=== PATIENT | female | born 1990 | race Caucasian/White ===

== ENCOUNTER 2020-01-14 02:35 | Inpatient (IN) | payer BC ==
[2020-01-14] MEDS ORDERED: Sodium Chloride 0.9% 10 ML Syringe FLUSH PRN (03:14)
[2020-01-14] MEDS ORDERED: Nalbuphine 10 MG/1 ML Vial IVPUSH PRN (03:14)
[2020-01-14] MEDS ORDERED: Oxytocin/Lactated Ringers 10 UNIT/1,000 ML BAG IV SCH (03:15)
[2020-01-14] MEDS: Lactated Ringers 1,000 ML IV SCH ×3 (03:42→06:00)
[2020-01-14] MEDS ORDERED: fentaNYL 100 MCG/2 ML SDV EPIDUR PRN (04:16)
[2020-01-14] MEDS ORDERED: diphenhydrAMINE 50 MG/ML SDV IVPUSH PRN (04:16)
[2020-01-14] MEDS ORDERED: Bupivacaine/fentaNYL/NS 100 ML Bag EPIDUR PRN (04:16)
[2020-01-14] MEDS ORDERED: ePHEDrine 50 MG/ML SDV IVPUSH PRN (04:16)
[2020-01-14] MEDS ORDERED: Acetaminophen 325 MG Tab PO PRN ×2 (05:55→09:30)
--- NOTE | 2020-01-14 09:15 | PCM.LDHP ---
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 Cervix 6 cm dilated on patient's presentation to labor and delivery 07/04/2019 blood type B+ antibody screen negative hemoglobin/hematocrit 13.2 39.9 platelets 290,000 rubella immune urine culture mixed amanda, hepatitis B surface antigen negative HIV negative GC chlamydia negative 10/24/2019 hemoglobin/hematocrit 11.8 36.2 platelets 272,001-hour OB glucose screen 144 3-hour glucose tolerance test fasting 79 1 hour 158 2-hour 152 3-hour 122 within normal limits, ER nonreactive /07/2019 group B strep negative. Plan labor and delivery Pain Score: 8 Improves with: Reports: None Worsens with: Reports: None Associated Symptoms: Reports: N - Related Data Allergies/Adverse Reactions: Allergies Allergy/AdvReac Type Severity Reaction Status Date / Time No Known Allergies Allergy Verified 01/14/20 02:45 Home Medications: Home Meds Ferrous Sulfate [Iron] 1 tab PO DAILY 01/14/20 [History] Pnv No.95/Ferrous Fum/Folic AC [ Vitamins Tablet] 1 tab PO DAILY 01/14/20 [History] Past Medical History HEENT History: Reports: Other (See Below) Other HEENT History: Pt wears contacts Cardiovascular History: Reports: None Respiratory History: Reports: None Gastrointestinal History: Reports: None Genitourinary History: Reports: None SIGNAL FITTER History: Reports: None Musculoskeletal History: Reports: None Neurological History: Reports: None Psychiatric History: Reports: None Endocrine/Metabolic History: Reports: None Hematologic History: Reports: Anemia, Other (See Below) Other Hematologic History: Pt taking daily iron supplement Immunologic History: Reports: None Oncologic (Cancer) History: Reports: None Dermatologic History: Reports: None - Infectious Disease History Infectious Disease History: Reports: None - Past Surgical History Head Surgeries/Procedures: Reports: None HEENT Surgical History: Reports: Tonsillectomy Social & Family History - Family History Family Medical History: No Pertinent Family History - Tobacco Use Tobacco Use Status *Q: Never Tobacco User - Recreational Drug Use Recreational Drug Use: No H&P Review of Systems - Review of Systems: Review Of Systems: See Below General: Reports: No Symptoms HEENT: Reports: No Symptoms Pulmonary: Reports: No Symptoms Cardiovascular: Reports: No Symptoms Gastrointestinal: Reports: No Symptoms Genitourinary: Reports: No Symptoms Musculoskeletal: Reports: No Symptoms Skin: Reports: No Symptoms Psychiatric: Reports: No Symptoms Neurological: Reports: No Symptoms Hematologic/Lymphatic: Reports: No Symptoms Immunologic: Reports: No Symptoms L&D Exam - Exam Exam: See Below - Vital Signs Vital Signs: Last Vital Signs Temp 100.0 F 01/14/20 05:52 Pulse Resp 16 01/14/20 03:00 BP 153/97 H 01/14/20 03:00 Pulse Ox 100 01/14/20 03:00 Weight: 201 lb 11.2 oz - OB Specific Fundal Height In cm: 39 Contraction Duration (sec): 60 Contraction Frequency (min): 4 Contraction Intensity: Moderate Movement: Active Heart Tones: Present Heart Tones per Min: 140 Heart Rate (FHR) Variability: Moderate (6-25 bmp) Presentation: Vertex Estimated Weight: 8.0 - Sprague Score Sprague Score Cervix Position: Posterior Sprague Score Consistency: Soft Sprague Score Effacement: >80% Sprague Score Dilation: > 5 cm Sprague Score 's Station: -1 ,0 Sprague Score Total: 10 - Exam General: Alert, Oriented HEENT: Conjunctiva Clear, Mucosa Moist & [place], Pupils Equal Neck: Supple, Trachea Midline Lungs: Clear to Auscultation, Normal Respiratory Effort Cardiovascular: Regular Rate, Regular Rhythm GI/Abdominal Exam: Normal Bowel Sounds, Soft, Non-Tender Genitourinary: Normal external exam Extremities: Normal Inspection, Non-Tender, No Pedal Edema, Normal Capillary Refill Skin: Warm, Dry, Intact Psychiatric: Alert, Normal Affect, Normal Mood - Patient Data Lab Results Last 24 hrs: Laboratory Results - last 24 hr 01/14/20 01/14/20 01/14/20 Range/Units 03:00 03:35 03:35 WBC 10.55 H (3.98-10.04) K/mm3 RBC 4.37 (3.98-5.22) M/mm3 Hgb 12.9 (11.2-15.7) gm/dl Hct 39.7 (34.1-44.9) % MCV 90.8 (79.4-94.8) fl MCH 29.5 (25.6-32.2) pg MCHC 32.5 (32.2-35.5) g/dl RDW Std Deviation 44.7 (36.4-46.3) fL Plt Count 210 (182-369) K/mm3 MPV 10.6 (9.4-12.3) fl Neut % (Auto) 75.5 H (34.0-71.1) % Lymph % (Auto) 15.3 L (19.3-51.7) % [place] % (Auto) 8.2 (4.7-12.5) % Eos % (Auto) 0.5 L (0.7-5.8) Baso % (Auto) 0.1 (0.1-1.2) % Neut # (Auto) 7.97 H (1.56-6.13) K/mm3 Lymph # (Auto) 1.61 (1.18-3.74) K/mm3 [place] # (Auto) 0.87 H (0.24-0.36) K/mm3 Eos # (Auto) 0.05 (0.04-0.36) K/mm3 Baso # (Auto) 0.01 (0.01-0.08) K/mm3 BUN 12 (7-18) mg/dL Creatinine 0.7 (0.55-1.02) mg/dL Est Cr Clr Drug Dosing 132.54 mL/min Estimated GFR (MDRD) > 60 (>60) mL/min Uric Acid 5.6 (2.6-6.0) mg/dL AST 11 L (15-37) U/L ALT 14 (14-59) U/L Lactate Dehydrogenase 151 (81-234) U/L Ur Random Creatinine (30.0-125.0) mg/dL U Random Total Protein (0.0-11.8) mg/dL Protein/Creatinin Ratio (0-149) mg/g Membrane Rupture Positive H SARS-CoV-2 RNA (SCHUYLER) (NEGATIVE) 01/14/20 01/14/20 Range/Units 03:35 03:40 WBC (3.98-10.04) K/mm3 RBC (3.98-5.22) M/mm3 Hgb (11.2-15.7) gm/dl Hct (34.1-44.9) % MCV (79.4-94.8) fl MCH (25.6-32.2) pg MCHC (32.2-35.5) g/dl RDW Std Deviation (36.4-46.3) fL Plt Count (182-369) K/mm3 MPV (9.4-12.3) fl Neut % (Auto) (34.0-71.1) % Lymph % (Auto) (19.3-51.7) % [place] % (Auto) (4.7-12.5) % Eos % (Auto) (0.7-5.8) Baso % (Auto) (0.1-1.2) % Neut # (Auto) (1.56-6.13) K/mm3 Lymph # (Auto) (1.18-3.74) K/mm3 [place] # (Auto) (0.24-0.36) K/mm3 Eos # (Auto) (0.04-0.36) K/mm3 Baso # (Auto) (0.01-0.08) K/mm3 BUN (7-18) mg/dL Creatinine (0.55-1.02) mg/dL Est Cr Clr Drug Dosing mL/min Estimated GFR (MDRD) (>60) mL/min Uric Acid (2.6-6.0) mg/dL AST (15-37) U/L ALT (14-59) U/L Lactate Dehydrogenase (81-234) U/L Ur Random Creatinine 115.9 (30.0-125.0) mg/dL U Random Total Protein 25.4 H (0.0-11.8) mg/dL Protein/Creatinin Ratio 219.2 H (0-149) mg/g Membrane Rupture SARS-CoV-2 RNA (SCHUYLER) Negative (NEGATIVE) Result Diagrams: 01/14/20 03:35 01/14/20 03:35 - Problem List (1) 39 weeks gestation of SNOMED Code(s): 33611410 ICD Code: Z3A.39 - 39 WEEKS GESTATION OF Status: Acute Current Visit: Yes Problem List Initiated/Reviewed/Updated: No Orders Last 24hrs: Active Orders 24 hr Category Date Time Status Patient Status [ADT] Routine ADT 01/14/20 02:45 Active Patient Status [ADT] Routine ADT 01/14/20 03:14 Active Activity as Tolerated [RC] PFP Care 01/14/20 03:14 Active Communication Order [RC] ASDIRECTED Care 01/14/20 03:14 Active Heart Tones [RC] ASDIRECTED Care 01/14/20 03:14 Active Non Stress Test [RC] PER UNIT ROUTINE Care 01/14/20 02:45 Active Non Stress Test [RC] PER UNIT ROUTINE Care 01/14/20 03:14 Active Notify Provider [RC] ASDIRECTED Care 01/14/20 04:16 Active Notify Provider [RC] PFP Care 01/14/20 03:14 Active Notify Provider [RC] PRN Care 01/14/20 03:14 Active Peripheral IV Care [RC] . DIRECTED Care 01/14/20 03:14 Active Urinary Catheter Assessment [RC] ASDIRECTED Care 01/14/20 03:14 Active Vital Signs [RC] PER UNIT ROUTINE Care 01/14/20 02:45 Active Vital Signs [RC] PER UNIT ROUTINE Care 01/14/20 03:14 Active RAPID PLASMA REAGIN,RPR [CHEM] Routine Lab 01/14/20 03:35 Received Acetaminophen [TylenoL] Med 01/14/20 05:55 Active 650 mg PO Q6H PRN Bupivacaine/fentaNYL/NS [fentaNYL/Bupivacaine/NS 2 MCG- Med 01/14/20 04:16 Active 0.125% 100 ML] 100 ml EPIDUR ASDIRECTED PRN Lactated Ringers [Ringers, Lactated] 1,000 ml Med 01/14/20 03:15 Active IV ASDIRECTED Nalbuphine [Nubain] Med 01/14/20 03:14 Active 10 mg IVPUSH Q2H PRN Oxytocin/Lactated Ringers [Pitocin in LR 10 Units/1,000 Med 01/14/20 03:15 Active ML] 10 unit in 1,000 ml IV .CONTINUOUS Sodium Chloride 0.9% [Saline Flush] Med 01/14/20 03:14 Active 10 ml FLUSH ASDIRECTED PRN diphenhydrAMINE [Benadryl] Med 01/14/20 04:16 Active 25 mg IVPUSH Q6H PRN ePHEDrine [ePHEDrine sulfate] Med 01/14/20 04:16 Active 5 mg IVPUSH ASDIRECTED PRN fentaNYL [Sublimaze] Med 01/14/20 04:16 Active 100 mcg EPIDUR Q3H PRN Electronic Heart Tones Ext w TOCO [WOMSER] Oth 01/14/20 03:14 Ordered Routine Electronic Heart Tones Internal [WOMSER] Per Unit Oth 01/14/20 03:14 Ordered Routine PIH Panel [OM.PC] Stat Oth 01/14/20 03:14 Ordered Peripheral IV Insertion Adult [OM.PC] Routine Oth 01/14/20 03:14 Ordered Resuscitation Status Routine Resus Stat 01/14/20 03:14 Ordered Medication Orders Acetaminophen (Tylenol) 650 mg PO Q6H PRN PRN Reason: Fever Last Admin: 01/14/20 05:52 Dose: 650 mg Documented by: YOANNA Diphenhydramine HCl (Benadryl) 25 mg IVPUSH Q6H PRN PRN Reason: pruritis Ephedrine Sulfate (Ephedrine Sulfate) 5 mg IVPUSH ASDIRECTED PRN PRN Reason: Hypotension Fentanyl (Sublimaze) 100 mcg EPIDUR Q3H PRN PRN Reason: Pain Last Admin: 01/14/20 04:28 Dose: 100 mcg Documented by: YOANNA Fentanyl/Bupivacaine HCl (Fentanyl/Bupivacaine/Ns 2 Mcg-0.125% 100 Ml) 100 ml EPIDUR ASDIRECTED PRN PRN Reason: Pain Last Admin: 01/14/20 04:28 Dose: 100 ml Documented by: YOANNA Lactated Ringer's (Ringers, Lactated) 1,000 mls @ 100 mls/hr IV ASDIRECTED PRECIOUS Last Admin: 01/14/20 06:00 Dose: 900 mls/hr Documented by: Infusion: 01/14/20 05:35 Dose: 900 mls/hr Documented by: Admin: 01/14/20 04:28 Dose: 900 mls/hr Documented by: Infusion: 01/14/20 04:28 Dose: 900 mls/hr Documented by: Admin: 01/14/20 03:42 Dose: 900 mls/hr Documented by: YOANNA Oxytocin/Lactated Ringer's (Pitocin In Lr 10 Units/1,000 Ml) 10 unit in 1,000 mls @ 500 mls/hr IV .CONTINUOUS PRECIOUS Nalbuphine HCl (Nubain) 10 mg IVPUSH Q2H PRN PRN Reason: Pain Sodium Chloride (Saline Flush) 10 ml FLUSH ASDIRECTED PRN PRN Reason: Keep Vein Open Assessment/Plan Comment:: Plan labor and delivery
--- NOTE | 2020-01-14 09:15 | PCM.DEL ---
L & D Note - General Info Date of Service: 01/14/20 Mother's Due Date: 01/20/20 - Delivery Note Labor: Spontaneous, Augmented by Oxytocin Delivery Outcome: Livebirth (Female liveborn 01/14/2020 at 821 Apgars 7/9 weight 3570 g / 7 pounds 14 ounces.) Infant Delivery Method: Spontaneous Vaginal Delivery-Single Infant Delivery Mode: Spontaneous Presentation: Left Occiput Anterior (PAVAN) Nuchal Cord: None Prep: Povidone-Iodine (Betadine Anesthesia Type: Epidural Amniotic Fluid Description: Clear Episiotomy Type: None Laceration: 1st Degree (Midline) Suture type: Other (Monocryl is 1) Suture size: 3-0 Placenta: Intact, Spontaneous (Spontaneous intact at 0825 hrs. eccentric cord insertion Zambon discarded) Cord: 3 Vessels Estimated Blood Loss: 250 Resuscitation Needed: No : Suctioned, Bulb Syringe, Stimulated, Warmed, Ovid Used, Warmer Used Provider: Tal Tidwell Score 1 min: 7 Score 5 min: 9 - General Info Date of Service: 01/14/20 Functional Status: Reports: Pain Controlled - Review of Systems General: Reports: No Symptoms HEENT: Reports: No Symptoms Pulmonary: Reports: No Symptoms Cardiovascular: Reports: No Symptoms Gastrointestinal: Reports: No Symptoms Genitourinary: Reports: No Symptoms Musculoskeletal: Reports: No Symptoms Skin: Reports: No Symptoms Neurological: Reports: No Symptoms Psychiatric: Reports: No Symptoms - Patient Data Vitals - Most Recent: Last Vital Signs Temp 100.0 F 01/14/20 05:52 Pulse Resp 16 01/14/20 03:00 BP 153/97 H 01/14/20 03:00 Pulse Ox 100 01/14/20 03:00 Weight - Most Recent: 201 lb 11.2 oz I&O - Last 24 Hours: Intake & Output 01/13/20 01/14/20 01/14/20 22:59 06:59 14:59 Intake Total 2000 Output Total 300 Balance 1700 Lab Results Last 24 Hours: Laboratory Results - last 24 hr 01/14/20 01/14/20 01/14/20 Range/Units 03:00 03:35 03:35 WBC 10.55 H (3.98-10.04) K/mm3 RBC 4.37 (3.98-5.22) M/mm3 Hgb 12.9 (11.2-15.7) gm/dl Hct 39.7 (34.1-44.9) % MCV 90.8 (79.4-94.8) fl MCH 29.5 (25.6-32.2) pg MCHC 32.5 (32.2-35.5) g/dl RDW Std Deviation 44.7 (36.4-46.3) fL Plt Count 210 (182-369) K/mm3 MPV 10.6 (9.4-12.3) fl Neut % (Auto) 75.5 H (34.0-71.1) % Lymph % (Auto) 15.3 L (19.3-51.7) % [place] % (Auto) 8.2 (4.7-12.5) % Eos % (Auto) 0.5 L (0.7-5.8) Baso % (Auto) 0.1 (0.1-1.2) % Neut # (Auto) 7.97 H (1.56-6.13) K/mm3 Lymph # (Auto) 1.61 (1.18-3.74) K/mm3 [place] # (Auto) 0.87 H (0.24-0.36) K/mm3 Eos # (Auto) 0.05 (0.04-0.36) K/mm3 Baso # (Auto) 0.01 (0.01-0.08) K/mm3 BUN 12 (7-18) mg/dL Creatinine 0.7 (0.55-1.02) mg/dL Est Cr Clr Drug Dosing 132.54 mL/min Estimated GFR (MDRD) > 60 (>60) mL/min Uric Acid 5.6 (2.6-6.0) mg/dL AST 11 L (15-37) U/L ALT 14 (14-59) U/L Lactate Dehydrogenase 151 (81-234) U/L Ur Random Creatinine (30.0-125.0) mg/dL U Random Total Protein (0.0-11.8) mg/dL Protein/Creatinin Ratio (0-149) mg/g Membrane Rupture Positive H SARS-CoV-2 RNA ([place]ER) (NEGATIVE) 01/14/20 01/14/20 Range/Units 03:35 03:40 WBC (3.98-10.04) K/mm3 RBC (3.98-5.22) M/mm3 Hgb (11.2-15.7) gm/dl Hct (34.1-44.9) % MCV (79.4-94.8) fl MCH (25.6-32.2) pg MCHC (32.2-35.5) g/dl RDW Std Deviation (36.4-46.3) fL Plt Count (182-369) K/mm3 MPV (9.4-12.3) fl Neut % (Auto) (34.0-71.1) % Lymph % (Auto) (19.3-51.7) % [place] % (Auto) (4.7-12.5) % Eos % (Auto) (0.7-5.8) Baso % (Auto) (0.1-1.2) % Neut # (Auto) (1.56-6.13) K/mm3 Lymph # (Auto) (1.18-3.74) K/mm3 [place] # (Auto) (0.24-0.36) K/mm3 Eos # (Auto) (0.04-0.36) K/mm3 Baso # (Auto) (0.01-0.08) K/mm3 BUN (7-18) mg/dL Creatinine (0.55-1.02) mg/dL Est Cr Clr Drug Dosing mL/min Estimated GFR (MDRD) (>60) mL/min Uric Acid (2.6-6.0) mg/dL AST (15-37) U/L ALT (14-59) U/L Lactate Dehydrogenase (81-234) U/L Ur Random Creatinine 115.9 (30.0-125.0) mg/dL U Random Total Protein 25.4 H (0.0-11.8) mg/dL Protein/Creatinin Ratio 219.2 H (0-149) mg/g Membrane Rupture SARS-CoV-2 RNA ([facility]) Negative (NEGATIVE) Med Orders - Current: Current Medications Acetaminophen (Tylenol) 650 mg PO Q6H PRN PRN Reason: Fever Last Admin: 01/14/20 05:52 Dose: 650 mg Documented by: Diphenhydramine HCl (Benadryl) 25 mg IVPUSH Q6H PRN PRN Reason: pruritis Ephedrine Sulfate (Ephedrine Sulfate) 5 mg IVPUSH ASDIRECTED PRN PRN Reason: Hypotension Fentanyl (Sublimaze) 100 mcg EPIDUR Q3H PRN PRN Reason: Pain Last Admin: 01/14/20 04:28 Dose: 100 mcg Documented by: Fentanyl/Bupivacaine HCl (Fentanyl/Bupivacaine/Ns 2 Mcg-0.125% 100 Ml) 100 ml EPIDUR ASDIRECTED PRN PRN Reason: Pain Last Admin: 01/14/20 04:28 Dose: 100 ml Documented by: Lactated Ringer's (Ringers, Lactated) 1,000 mls @ 100 mls/hr IV ASDIRECTED PRECIOUS Last Admin: 01/14/20 06:00 Dose: 900 mls/hr Documented by: Oxytocin/Lactated Ringer's (Pitocin In Lr 10 Units/1,000 Ml) 10 unit in 1,000 mls @ 500 mls/hr IV .CONTINUOUS PRECIOUS Nalbuphine HCl (Nubain) 10 mg IVPUSH Q2H PRN PRN Reason: Pain Sodium Chloride (Saline Flush) 10 ml FLUSH ASDIRECTED PRN PRN Reason: Keep Vein Open - Exam General: Alert, Oriented HEENT: Pupils Equal, Mucous Membr. Moist/[place] Neck: Supple Lungs: Clear to Auscultation, Normal Respiratory Effort Cardiovascular: Regular Rate, Regular Rhythm GI/Abdominal Exam: Normal Bowel Sounds (Female) Exam: Normal External Exam Extremities: Normal Inspection, Non-Tender, No Pedal Edema, Normal Capillary Refill - Problem List & Annotations (1) 39 weeks gestation of SNOMED Code(s): 06848949 Code(s): Z3A.39 - 39 WEEKS GESTATION OF Status: Acute Current Visit: Yes (2) First degree laceration of perineum during delivery, SNOMED Code(s): 184962579 Code(s): O70.0 - FIRST DEGREE PERINEAL LACERATION DURING DELIVERY Status: Acute Current Visit: Yes - Problem List Review Problem List Initiated/Reviewed/Updated: No - My Orders Last 24 Hours: My Active Orders 01/14/20 02:45 Patient Status [ADT] Routine Non Stress Test [RC] PER UNIT ROUTINE Vital Signs [RC] PER UNIT ROUTINE 01/14/20 03:14 Patient Status [ADT] Routine Activity as Tolerated [RC] PFP Communication Order [RC] ASDIRECTED Heart Tones [RC] ASDIRECTED Non Stress Test [RC] PER UNIT ROUTINE Notify Provider [RC] PFP Notify Provider [RC] PRN Peripheral IV Care [RC] . DIRECTED Urinary Catheter Assessment [RC] ASDIRECTED Vital Signs [RC] PER UNIT ROUTINE Nalbuphine [Nubain] 10 mg IVPUSH Q2H PRN Sodium Chloride 0.9% [Saline Flush] 10 ml FLUSH ASDIRECTED PRN Electronic Heart Tones Ext w TOCO [WOMSER] Routine Electronic Heart Tones Internal [WOMSER] Per Unit Routine PIH Panel [OM.PC] Stat Peripheral IV Insertion Adult [OM.PC] Routine Resuscitation Status Routine 01/14/20 03:15 Lactated Ringers [Ringers, Lactated] 1,000 ml IV ASDIRECTED Oxytocin/Lactated Ringers [Pitocin in LR 10 Units/1,000 ML] 10 unit in 1,000 ml IV .CONTINUOUS 01/14/20 03:35 RAPID PLASMA REAGIN,RPR [CHEM] Routine 01/14/20 05:55 Acetaminophen [TylenoL] 650 mg PO Q6H PRN - Plan Plan:: Plan labor and delivery
[2020-01-14] MEDS ORDERED: Ibuprofen 600 MG Tab PO PRN (09:29)
[2020-01-14] MEDS ORDERED: Witch Hazel Medicated Pads 40/Jar TOP PRN (09:29)
[2020-01-14] MEDS ORDERED: Benzocaine/Menthol 20%-0.5% Spray 56 GM Canister TOP PRN (09:29)
[2020-01-14] MEDS ORDERED: Labetalol 100 MG Tab PO ONE (17:22)
[2020-01-15] MEDS ORDERED: Bupivacaine 0.25% 10 ML SDV ONE
--- NOTE | 2020-01-15 04:37 | PCM48HPAN ---
Post Anesthesia Note - EVALUATION WITHIN 48HRS OF ANESTHETIC Vital Signs in Normal Range: Yes Patient Participated in Evaluation: Yes Respiratory Function Stable: Yes Airway Patent: Yes Cardiovascular Function Stable: Yes Hydration Status Stable: Yes Pain Control Satisfactory: Yes Nausea and Vomiting Control Satisfactory: Yes Mental Status Recovered: Yes Vital Signs: Last Vital Signs Temp 37.1 C 01/15/20 00:26 Pulse 100 01/15/20 00:26 Resp 14 01/15/20 00:26 BP 124/78 01/15/20 00:26 Pulse Ox 98 01/15/20 00:26
--- NOTE | 2020-01-15 06:17 | PCM.DCSUM1 ---
Discharge Summary - Hospital Course Free Text/Narrative:: [place] LIVE L/D Delivery Note Patient Name: STEPHEN FLORENCE Date of : 89 Patient Status: Inpatient Attending Provider: Tal Tidwell Date: 01/14/20 08:43 Initialization Date: 01/14/20 08:43 L & D Note - General Info Date of Service: 01/14/20 Mother's Due Date: 01/20/20 - Delivery Note Labor: Spontaneous, Augmented by Oxytocin Delivery Outcome: Livebirth (Female liveborn 01/14/2020 at 821 Apgars 7/9 weight 3570 g / 7 pounds 14 ounces.) Delivery Method: Spontaneous Vaginal Delivery-Single Delivery Mode: Spontaneous Presentation: Left Occiput Anterior (PAVAN) Nuchal Cord: None Prep: Povidone-Iodine (Betadine Anesthesia Type: Epidural Amniotic Fluid Description: Clear Episiotomy Type: None Laceration: 1st Degree (Midline) Suture type: Other (Monocryl is 1) Suture size: 3-0 Placenta: Intact, Spontaneous (Spontaneous intact at 0825 hrs. eccentric cord insertion Zambon discarded) Cord: 3 Vessels Estimated Blood Loss: 250 Resuscitation Needed: No [place]: Suctioned, Bulb Syringe, Stimulated, Warmed, [place] Used, Warmer Used Provider: Tal Tidwell Score 1 min: 7 Score 5 min: 9 - General Info Date of Service: 01/14/20 Functional Status: Reports: Pain Controlled - Review of Systems General: Reports: No Symptoms HEENT: Reports: No Symptoms Pulmonary: Reports: No Symptoms Cardiovascular: Reports: No Symptoms Gastrointestinal: Reports: No Symptoms Genitourinary: Reports: No Symptoms Musculoskeletal: Reports: No Symptoms Skin: Reports: No Symptoms Neurological: Reports: No Symptoms Psychiatric: Reports: No Symptoms - Patient Data Vitals - Most Recent: Last Vital Signs Temp 100.0 F 01/14/20 05:52 Pulse Resp 16 01/14/20 03:00 BP 153/97 H 01/14/20 03:00 Pulse Ox 100 01/14/20 03:00 Weight - Most Recent: 201 lb 11.2 oz I&O - Last 24 Hours: Intake & Output 1101/14/20 01/14/20 22:59 06:59 14:59 Intake Total 2000 Output Total 300 Balance 1700 Lab Results Last 24 Hours: Laboratory Results - last 24 hr 01/14/20 01/14/20 01/14/20 Range/Units 03:00 03:35 03:35 WBC 10.55 H (3.98-10.04) K/mm3 RBC 4.37 (3.98-5.22) M/mm3 Hgb 12.9 (11.2-15.7) gm/dl Hct 39.7 (34.1-44.9) % MCV 90.8 (79.4-94.8) fl MCH 29.5 (25.6-32.2) pg MCHC 32.5 (32.2-35.5) g/dl RDW Std Deviation 44.7 (36.4-46.3) fL Plt Count 210 (182-369) K/mm3 MPV 10.6 (9.4-12.3) fl Neut % (Auto) 75.5 H (34.0-71.1) % Lymph % (Auto) 15.3 L (19.3-51.7) % Castro % (Auto) 8.2 (4.7-12.5) % Eos % (Auto) 0.5 L (0.7-5.8) Baso % (Auto) 0.1 (0.1-1.2) % Neut # (Auto) 7.97 H (1.56-6.13) K/mm3 Lymph # (Auto) 1.61 (1.18-3.74) K/mm3 Castro # (Auto) 0.87 H (0.24-0.36) K/mm3 Eos # (Auto) 0.05 (0.04-0.36) K/mm3 Baso # (Auto) 0.01 (0.01-0.08) K/mm3 BUN 12 (7-18) mg/dL Creatinine 0.7 (0.55-1.02) mg/dL Est Cr Clr Drug Dosing 132.54 mL/min Estimated GFR (MDRD) > 60 (>60) mL/min Uric Acid 5.6 (2.6-6.0) mg/dL AST 11 L (15-37) U/L ALT 14 (14-59) U/L Lactate Dehydrogenase 151 (81-234) U/L Ur Random Creatinine (30.0-125.0) mg/dL U Random Total Protein (0.0-11.8) mg/dL Protein/Creatinin Ratio (0-149) mg/g Membrane Rupture Positive H SARS-CoV-2 RNA (SCHUYLER) (NEGATIVE) 01/14/20 01/14/20 Range/Units 03:35 03:40 WBC (3.98-10.04) K/mm3 RBC (3.98-5.22) M/mm3 Hgb (11.2-15.7) gm/dl Hct (34.1-44.9) % MCV (79.4-94.8) fl MCH (25.6-32.2) pg MCHC (32.2-35.5) g/dl RDW Std Deviation (36.4-46.3) fL Plt Count (182-369) K/mm3 MPV (9.4-12.3) fl Neut % (Auto) (34.0-71.1) % Lymph % (Auto) (19.3-51.7) % Castro % (Auto) (4.7-12.5) % Eos % (Auto) (0.7-5.8) Baso % (Auto) (0.1-1.2) % Neut # (Auto) (1.56-6.13) K/mm3 Lymph # (Auto) (1.18-3.74) K/mm3 Castro # (Auto) (0.24-0.36) K/mm3 Eos # (Auto) (0.04-0.36) K/mm3 Baso # (Auto) (0.01-0.08) K/mm3 BUN (7-18) mg/dL Creatinine (0.55-1.02) mg/dL Est Cr Clr Drug Dosing mL/min Estimated GFR (MDRD) (>60) mL/min Uric Acid (2.6-6.0) mg/dL AST (15-37) U/L ALT (14-59) U/L Lactate Dehydrogenase (81-234) U/L Ur Random Creatinine 115.9 (30.0-125.0) mg/dL U Random Total Protein 25.4 H (0.0-11.8) mg/dL Protein/Creatinin Ratio 219.2 H (0-149) mg/g Membrane Rupture SARS-CoV-2 RNA (SCHUYLER) Negative (NEGATIVE) Med Orders - Current: Current Medications Acetaminophen (Tylenol) 650 mg PO Q6H PRN PRN Reason: Fever Last Admin: 01/14/20 05:52 Dose: 650 mg Documented by: Diphenhydramine HCl (Benadryl) 25 mg IVPUSH Q6H PRN PRN Reason: pruritis Ephedrine Sulfate (Ephedrine Sulfate) 5 mg IVPUSH ASDIRECTED PRN PRN Reason: Hypotension Fentanyl (Sublimaze) 100 mcg EPIDUR Q3H PRN PRN Reason: Pain Last Admin: 01/14/20 04:28 Dose: 100 mcg Documented by: Fentanyl/Bupivacaine HCl (Fentanyl/Bupivacaine/Ns 2 Mcg-0.125% 100 Ml) 100 ml EPIDUR ASDIRECTED PRN PRN Reason: Pain Last Admin: 01/14/20 04:28 Dose: 100 ml Documented by: Lactated Ringer's (Ringers, Lactated) 1,000 mls @ 100 mls/hr IV ASDIRECTED PRECIOUS Last Admin: 01/14/20 06:00 Dose: 900 mls/hr Documented by: Oxytocin/Lactated Ringer's (Pitocin In Lr 10 Units/1,000 Ml) 10 unit in 1,000 mls @ 500 mls/hr IV .CONTINUOUS PRECIOUS Nalbuphine HCl (Nubain) 10 mg IVPUSH Q2H PRN PRN Reason: Pain Sodium Chloride (Saline Flush) 10 ml FLUSH ASDIRECTED PRN PRN Reason: Keep Vein Open - Exam General: Alert, Oriented HEENT: Pupils Equal, Mucous Membr. Moist/[place] Neck: Supple Lungs: Clear to Auscultation, Normal Respiratory Effort Cardiovascular: Regular Rate, Regular Rhythm GI/Abdominal Exam: Normal Bowel Sounds (Female) Exam: Normal External Exam Extremities: Normal Inspection, Non-Tender, No Pedal Edema, Normal Capillary Refill - Problem List & Annotations (1) 39 weeks gestation of SNOMED Code(s): 81063443 Code(s): Z3A.39 - 39 WEEKS GESTATION OF Status: Acute Current Visit: Yes (2) First degree laceration of perineum during delivery, SNOMED Code(s): 898308009 Code(s): O70.0 - FIRST DEGREE PERINEAL LACERATION DURING DELIVERY Status: Acute Current Visit: Yes - Problem List Review Problem List Initiated/Reviewed/Updated: No - My Orders Last 24 Hours: My Active Orders 01/14/20 02:45 Patient Status [ADT] Routine Non Stress Test [RC] PER UNIT ROUTINE Vital Signs [RC] PER UNIT ROUTINE 01/14/20 03:14 Patient Status [ADT] Routine Activity as Tolerated [RC] PFP Communication Order [RC] ASDIRECTED Heart Tones [RC] ASDIRECTED Non Stress Test [RC] PER UNIT ROUTINE Notify Provider [RC] PFP Notify Provider [RC] PRN Peripheral IV Care [RC] . DIRECTED Urinary Catheter Assessment [RC] ASDIRECTED Vital Signs [RC] PER UNIT ROUTINE Nalbuphine [Nubain] 10 mg IVPUSH Q2H PRN Sodium Chloride 0.9% [Saline Flush] 10 ml FLUSH ASDIRECTED PRN Electronic Heart Tones Ext w TOCO [WOMSER] Routine Electronic Heart Tones Internal [WOMSER] Per Unit Routine PIH Panel [OM.PC] Stat Peripheral IV Insertion Adult [OM.PC] Routine Resuscitation Status Routine 01/14/20 03:15 Lactated Ringers [Ringers, Lactated] 1,000 ml IV ASDIRECTED Oxytocin/Lactated Ringers [Pitocin in LR 10 Units/1,000 ML] 10 unit in 1,000 ml IV .CONTINUOUS 01/14/20 03:35 RAPID PLASMA REAGIN,RPR [CHEM] Routine 01/14/20 05:55 Acetaminophen [TylenoL] 650 mg PO Q6H PRN - Plan Plan:: Plan labor and delivery HPI Initial Comments: [place] LIVE L/D Delivery Note Patient Name: STEPHEN FLORENCE Date of : 89 Patient Status: Inpatient Attending Provider: Tal Tidwell Date: 01/14/20 08:43 Initialization Date: 01/14/20 08:43 L & D Note - General Info Date of Service: 01/14/20 Mother's Due Date: 01/20/20 - Delivery Note Labor: Spontaneous, Augmented by Oxytocin Delivery Outcome: Livebirth (Female liveborn [birth year]2020 at 821 Apgars 7/9 weight 3570 g / 7 pounds 14 ounces.) Infant Delivery Method: Spontaneous Vaginal Delivery-Single Delivery Mode: Spontaneous Presentation: Left Occiput Anterior (PAVAN) Nuchal Cord: None Prep: Povidone-Iodine (Betadine Anesthesia Type: Epidural Amniotic Fluid Description: Clear Episiotomy Type: None Laceration: 1st Degree (Midline) Suture type: Other (Monocryl is 1) Suture size: 3-0 Placenta: Intact, Spontaneous (Spontaneous intact at 0825 hrs. eccentric cord insertion Zambon discarded) Cord: 3 Vessels Estimated Blood Loss: 250 Resuscitation Needed: No : Suctioned, Bulb Syringe, Stimulated, Warmed, [place] Used, Warmer Used Provider: Tal Tidwell Score 1 min: 7 Score 5 min: 9 - General Info Date of Service: 01/14/20 Functional Status: Reports: Pain Controlled - Review of Systems General: Reports: No Symptoms HEENT: Reports: No Symptoms Pulmonary: Reports: No Symptoms Cardiovascular: Reports: No Symptoms Gastrointestinal: Reports: No Symptoms Genitourinary: Reports: No Symptoms Musculoskeletal: Reports: No Symptoms Skin: Reports: No Symptoms Neurological: Reports: No Symptoms Psychiatric: Reports: No Symptoms - Patient Data Vitals - Most Recent: Last Vital Signs Temp 100.0 F 01/14/20 05:52 Pulse Resp 16 01/14/20 03:00 BP 153/97 H 01/14/20 03:00 Pulse Ox 100 01/14/20 03:00 Weight - Most Recent: 201 lb 11.2 oz I&O - Last 24 Hours: Intake & Output 01/13/20 01/14/20 01/14/20 22:59 06:59 14:59 Intake Total 2000 Output Total 300 Balance 1700 Lab Results Last 24 Hours: Laboratory Results - last 24 hr 01/14/20 01/14/20 01/14/20 Range/Units 03:00 03:35 03:35 WBC 10.55 H (3.98-10.04) K/mm3 RBC 4.37 (3.98-5.22) M/mm3 Hgb 12.9 (11.2-15.7) gm/dl Hct 39.7 (34.1-44.9) % MCV 90.8 (79.4-94.8) fl MCH 29.5 (25.6-32.2) pg MCHC 32.5 (32.2-35.5) g/dl RDW Std Deviation 44.7 (36.4-46.3) fL Plt Count 210 (182-369) K/mm3 MPV 10.6 (9.4-12.3) fl Neut % (Auto) 75.5 H (34.0-71.1) % Lymph % (Auto) 15.3 L (19.3-51.7) % Castro % (Auto) 8.2 (4.7-12.5) % Eos % (Auto) 0.5 L (0.7-5.8) Baso % (Auto) 0.1 (0.1-1.2) % Neut # (Auto) 7.97 H (1.56-6.13) K/mm3 Lymph # (Auto) 1.61 (1.18-3.74) K/mm3 Castro # (Auto) 0.87 H (0.24-0.36) K/mm3 Eos # (Auto) 0.05 (0.04-0.36) K/mm3 Baso # (Auto) 0.01 (0.01-0.08) K/mm3 BUN 12 (7-18) mg/dL Creatinine 0.7 (0.55-1.02) mg/dL Est Cr Clr Drug Dosing 132.54 mL/min Estimated GFR (MDRD) > 60 (>60) mL/min Uric Acid 5.6 (2.6-6.0) mg/dL AST 11 L (15-37) U/L ALT 14 (14-59) U/L Lactate Dehydrogenase 151 (81-234) U/L Ur Random Creatinine (30.0-125.0) mg/dL U Random Total Protein (0.0-11.8) mg/dL Protein/Creatinin Ratio (0-149) mg/g Membrane Rupture Positive H SARS-CoV-2 RNA (SCHUYLER) (NEGATIVE) 01/14/20 01/14/20 Range/Units 03:35 03:40 WBC (3.98-10.04) K/mm3 RBC (3.98-5.22) M/mm3 Hgb (11.2-15.7) gm/dl Hct (34.1-44.9) % MCV (79.4-94.8) fl MCH (25.6-32.2) pg MCHC (32.2-35.5) g/dl RDW Std Deviation (36.4-46.3) fL Plt Count (182-369) K/mm3 MPV (9.4-12.3) fl Neut % (Auto) (34.0-71.1) % Lymph % (Auto) (19.3-51.7) % Castro % (Auto) (4.7-12.5) % Eos % (Auto) (0.7-5.8) Baso % (Auto) (0.1-1.2) % Neut # (Auto) (1.56-6.13) K/mm3 Lymph # (Auto) (1.18-3.74) K/mm3 Castro # (Auto) (0.24-0.36) K/mm3 Eos # (Auto) (0.04-0.36) K/mm3 Baso # (Auto) (0.01-0.08) K/mm3 BUN (7-18) mg/dL Creatinine (0.55-1.02) mg/dL Est Cr Clr Drug Dosing mL/min Estimated GFR (MDRD) (>60) mL/min Uric Acid (2.6-6.0) mg/dL AST (15-37) U/L ALT (14-59) U/L Lactate Dehydrogenase (81-234) U/L Ur Random Creatinine 115.9 (30.0-125.0) mg/dL U Random Total Protein 25.4 H (0.0-11.8) mg/dL Protein/Creatinin Ratio 219.2 H (0-149) mg/g Membrane Rupture SARS-CoV-2 RNA (SCHUYLER) Negative (NEGATIVE) Med Orders - Current: Current Medications Acetaminophen (Tylenol) 650 mg PO Q6H PRN PRN Reason: Fever Last Admin: 01/14/20 05:52 Dose: 650 mg Documented by: Diphenhydramine HCl (Benadryl) 25 mg IVPUSH Q6H PRN PRN Reason: pruritis Ephedrine Sulfate (Ephedrine Sulfate) 5 mg IVPUSH ASDIRECTED PRN PRN Reason: Hypotension Fentanyl (Sublimaze) 100 mcg EPIDUR Q3H PRN PRN Reason: Pain Last Admin: 01/14/20 04:28 Dose: 100 mcg Documented by: Fentanyl/Bupivacaine HCl (Fentanyl/Bupivacaine/Ns 2 Mcg-0.125% 100 Ml) 100 ml EPIDUR ASDIRECTED PRN PRN Reason: Pain Last Admin: 01/14/20 04:28 Dose: 100 ml Documented by: Lactated Ringer's (Ringers, Lactated) 1,000 mls @ 100 mls/hr IV ASDIRECTED PRECIOUS Last Admin: 01/14/20 06:00 Dose: 900 mls/hr Documented by: Oxytocin/Lactated Ringer's (Pitocin In Lr 10 Units/1,000 Ml) 10 unit in 1,000 mls @ 500 mls/hr IV .CONTINUOUS PRECIOUS Nalbuphine HCl (Nubain) 10 mg IVPUSH Q2H PRN PRN Reason: Pain Sodium Chloride (Saline Flush) 10 ml FLUSH ASDIRECTED PRN PRN Reason: Keep Vein Open - Exam General: Alert, Oriented HEENT: Pupils Equal, Mucous Membr. Moist/[place] Neck: Supple Lungs: Clear to Auscultation, Normal Respiratory Effort Cardiovascular: Regular Rate, Regular Rhythm GI/Abdominal Exam: Normal Bowel Sounds (Female) Exam: Normal External Exam Extremities: Normal Inspection, Non-Tender, No Pedal Edema, Normal Capillary Refill - Problem List & Annotations (1) 39 weeks gestation of SNOMED Code(s): 61625795 Code(s): Z3A.39 - 39 WEEKS GESTATION OF Status: Acute Current Visit: Yes (2) First degree laceration of perineum during delivery, SNOMED Code(s): 545336651 Code(s): O70.0 - FIRST DEGREE PERINEAL LACERATION DURING DELIVERY Status: Acute Current Visit: Yes - Problem List Review Problem List Initiated/Reviewed/Updated: No - My Orders Last 24 Hours: My Active Orders 01/14/20 02:45 Patient Status [ADT] Routine Non Stress Test [RC] PER UNIT ROUTINE Vital Signs [RC] PER UNIT ROUTINE 01/14/20 03:14 Patient Status [ADT] Routine Activity as Tolerated [RC] PFP Communication Order [RC] ASDIRECTED Heart Tones [RC] ASDIRECTED Non Stress Test [RC] PER UNIT ROUTINE Notify Provider [RC] PFP Notify Provider [RC] PRN Peripheral IV Care [RC] . DIRECTED Urinary Catheter Assessment [RC] ASDIRECTED Vital Signs [RC] PER UNIT ROUTINE Nalbuphine [Nubain] 10 mg IVPUSH Q2H PRN Sodium Chloride 0.9% [Saline Flush] 10 ml FLUSH ASDIRECTED PRN Electronic Heart Tones Ext w TOCO [WOMSER] Routine Electronic Heart Tones Internal [WOMSER] Per Unit Routine PIH Panel [OM.PC] Stat Peripheral IV Insertion Adult [OM.PC] Routine Resuscitation Status Routine 01/14/20 03:15 Lactated Ringers [Ringers, Lactated] 1,000 ml IV ASDIRECTED Oxytocin/Lactated Ringers [Pitocin in LR 10 Units/1,000 ML] 10 unit in 1,000 ml IV .CONTINUOUS 01/14/20 03:35 RAPID PLASMA REAGIN,RPR [CHEM] Routine 01/14/20 05:55 Acetaminophen [TylenoL] 650 mg PO Q6H PRN - Plan Plan:: Plan labor and delivery Brief History: [facility] L[facility] . L[facility]D [facility]. [id number]. Date of : 89Patient Status: Inpatient. Attending Provider: Tal Tidwell Number: [id number]. Date: 01/14/20 08:43Initialization Date: 01/14/20 08:43. L & D Note. - General Info. Date of Service: 01/14/20. Mother's Due Date: 01/20/20. - Delivery Note. Labor: Spontaneous, Augmented by Oxytocin. Delivery Outcome: Livebirth (Female liveborn 01/14/2020 at 821 Apgars 7/9 weight 3570 g / 7 pounds 14 ounces.). Infant Delivery Method: Spontaneous Vaginal Delivery-Single. Delivery Mode: Spontaneous. Presentation: Left Occiput Anterior (PAVAN). Nuchal Cord: None. Prep: Povidone-Iodine (Betadine. Anesthesia Type: Epidural. Amniotic Fluid Description: Clear. Episiotomy Type: None. Laceration: 1st Degree (Midline). Suture type: Other (Monocryl is 1). Suture size: 3-0. Placenta: Intact, Spontaneous (Spontaneous intact at 0825 hrs. eccentric cord insertion Zambon discarded). Cord: 3 Vessels. Estimated Blood Loss: 250. Resuscitation Needed: No. : Suctioned, Bulb Syringe, Stimulated, Warmed, [place] Used, Warmer Used. Provider: Tal Tidwell. Score 1 min: 7. Score 5 min: 9. - General Info. Date of Service: 01/14/20. Functional Status: Reports: Pain Controlled. - Review of Systems. General: Reports: No Symptoms. HEENT: Reports: No Symptoms. Pulmonary: Reports: No Symptoms. Cardiovascular: Reports: No Symptoms. Gastrointestinal: Reports: No Symptoms. Genitourinary: Reports: No Symptoms. Musculoskeletal: Reports: No Symptoms. Skin: Reports: No Symptoms. Neurological: Reports: No Symptoms. Psychiatric: Reports: No Symptoms. - Patient Data. Vitals - Most Recent: Last Vital Signs. Temp 100.0 F 01/14/20 05:52. Pulse. Resp 16 01/14/20 03:00. BP 153/97 H 01/14/20 03:00. Pulse Ox 100 01/14/20 03:00. Weight - Most Recent: 201 lb 11.2 oz. I&O - Last 24 Hours: Intake & Output. 01/12/2011/. 22:5906:5914:59. Intake [id number]. Output [id number]. [id number]. Lab Results Last 24 Hours: Laboratory Results - last 24 hr. 01/13/2011/Range/Units. 03:0003:3503:35. WBC 10.55 H (3.98-10.04) K/mm3. RBC 4.37 (3.98-5.22) M/mm3. Hgb 12.9 (11.2-15.7) gm/dl. Hct 39.7 (34.1-44.9) %. MCV 90.8 (79.4-94.8) fl. MCH 29.5 (25.6-32.2) pg. MCHC 32.5 (32.2-35.5) g/dl. RDW Std Deviation 44.7 (36.4-46.3) fL. Plt Count 210 (182-369) K/mm3. MPV 10.6 (9.4-12.3) fl. Neut % (Auto) 75.5 H (34.0-71.1) %. Lymph % (Auto) 15.3 L (19.3-51.7) %. Castro % (Auto) 8.2 (4.7-12.5) %. Eos % (Auto) 0.5 L (0.7-5.8). Baso % (Auto) 0.1 (0.1-1.2) %. Neut # (Auto) 7.97 H (1.56-6.13) K/mm3. Lymph # (Auto) 1.61 (1.18-3.74) K/mm3. Castro # (Auto) 0.87 H (0.24-0.36) K/mm3. Eos # (Auto) 0.05 (0.04-0.36) K/mm3. Baso # (Auto) 0.01 (0.01-0.08) K/mm3. BUN 12 (7-18) mg/dL. Creatinine 0.7 (0.55-1.02) mg/dL. Est Cr Clr Drug Dosing 132.54 mL/min. Estimated GFR (MDRD) > 60 (>60) mL/min. Uric Acid 5.6 (2.6-6.0) mg/dL. AST 11 L (15-37) U/L. ALT 14 (14-59) U/L. Lactate Dehydrogenase 151 (81-234) U/L. Ur Random Creatinine (30.0-125.0) mg/dL. U Random Total Protein (0.0-11.8) mg/dL. Protein/Creatinin Ratio (0-149) mg/g. Membrane Rupture Positive H. SARS-CoV-2 RNA (SCHUYLER) (NEGATIVE). 01/13/2011/Range/Units. 03:3503:40. WBC (3.98-10.04) K/mm3. RBC (3.98- 5.22) M/mm3. Hgb (11.2-15.7) gm/dl. Hct (34.1-44.9) %. MCV (79.4-94.8) fl. MCH (25.6-32.2) pg. MCHC (32.2-35.5) g/dl. RDW Std Deviation (36.4- 46.3) fL. Plt Count (182-369) K/mm3. MPV (9.4-12.3) fl. Neut % (Auto) (34.0-71.1) %. Lymph % (Auto) (19.3-51.7) %. Castro % (Auto) (4.7-12.5) %. Eos % (Auto) (0.7-5.8). Baso % (Auto) (0.1-1.2) %. Neut # (Auto) (1.56-6.13) K/mm3. Lymph # (Auto) (1.18-3.74) K/mm3. Castro # (Auto) (0.24-0.36) K/mm3. Eos # (Auto) (0.04-0.36) K/mm3. Baso # (Auto) (0.01-0.08) K/mm3. BUN (7-18) mg/dL. Creatinine (0.55-1.02) mg/dL. Est Cr Clr Drug Dosing mL/min. Estimated GFR (MDRD) (>60) mL/min. Uric Acid (2.6-6.0) mg/dL. AST (15-37) U/L. ALT (14-59) U/L. Lactate Dehydrogenase (81-234) U/L. Ur Random Creatinine 115.9 (30.0-125.0) mg/dL. U Random Total Protein 25.4 H (0.0-11.8) mg/dL. Protein/Creatinin Ratio 219.2 H (0-149) mg/g. Membrane Rupture. SARS-CoV-2 RNA (SCHUYLER) Negative (NEGATIVE). Med Orders - Current: Current Medications. Acetaminophen (Tylenol) 650 mg PO Q6H PRN. PRN Reason: Fever. Last Admin: 01/14/20 05:52 Dose: 650 mg. Documented by: Diphenhydramine HCl (Benadryl) 25 mg IVPUSH Q6H PRN. PRN Reason: pruritis. Ephedrine Sulfate (Ephedrine Sulfate) 5 mg IVPUSH ASDIRECTED PRN. PRN Reason: Hypotension. Fentanyl (Sublimaze) 100 mcg EPIDUR Q3H PRN. PRN Reason: Pain. Last Admin: 01/14/20 04:28 Dose: 100 mcg. Documented by: Fentanyl/Bupivacaine HCl (Fentanyl/Bupivacaine/Ns 2 Mcg-0.125% 100 Ml) 100 ml EPIDUR ASDIRECTED PRN. PRN Reason: Pain. Last Admin: 01/14/20 04:28 Dose: 100 ml. Documented by: Lactated Ringer's (Ringers, Lactated) 1,000 mls @ 100 mls/hr IV ASDIRECTED PRECIOUS. Last Admin: 01/14/20 06:00 Dose: 900 mls/hr. Documented by: Oxytocin/Lactated Ringer's (Pitocin In Lr 10 Units/1,000 Ml) 10 unit in 1,000 mls @ 500 mls/hr IV .CONTINUOUS PRECIOUS. Nalbuphine HCl (Nubain) 10 mg IVPUSH Q2H PRN. PRN Reason: Pain. Sodium Chloride (Saline Flush) 10 ml FLUSH ASDIRECTED PRN. PRN Reason: Keep Vein Open. - Exam. General: Alert, Oriented. HEENT: Pupils Equal, Mucous Membr. Moist/[place]. Neck: Supple. Lungs: Clear to Auscultation, Normal Respiratory Effort. Cardiovascular: Regular Rate, Regular Rhythm. GI/Abdominal Exam: Normal Bowel Sounds. (Female) Exam: Normal External Exam. Extremities: Normal Inspection, Non-Tender, No Pedal Edema, Normal Capillary Refill. - Problem List & Annotations. (1) 39 weeks gestation of . SNOMED Code(s): 33926070. Code(s): Z3A.39 - 39 WEEKS GESTATION OF Status: Acute Current Visit: Yes. (2) First degree laceration of perineum during delivery, . SNOMED Code(s): 613473513. Code(s): O70.0 - FIRST DEGREE PERINEAL LACERATION DURING DELIVERY Status: Acute Current Visit: Yes. - Problem List Review. Problem List Initiated/Reviewed/Updated: No. - My Orders. Last 24 Hours: My Active Orders. 01/14/20 02:45. Patient Status [ADT] Routine. Non Stress Test [RC] PER UNIT ROUTINE. Vital Signs [RC] PER UNIT ROUTINE. 01/14/20 03:14. Patient Status [ADT] Routine. Activity as Tolerated [RC] PFP. Communication Order [RC] ASDIRECTED. Heart Tones [RC] ASDIRECTED. Non Stress Test [RC] PER UNIT ROUTINE. Notify Provider [RC] PFP. Notify Provider [RC] PRN. Peripheral IV Care [RC] . DIRECTED. Urinary Catheter Assessment [RC] ASDIRECTED. Vital Signs [RC] PER UNIT ROUTINE. Nalbuphine [Nubain] 10 mg IVPUSH Q2H PRN. Sodium Chloride 0.9% [Saline Flush] 10 ml FLUSH ASDIRECTED PRN. Electronic Heart Tones Ext w TOCO [WOMSER] Routine. Electronic Heart Tones Internal [WOMSER] Per Unit Routine. PIH Panel [OM.PC] Stat. Peripheral IV Insertion Adult [OM.PC] Routine. Resuscitation Status Routine. 01/14/20 03:15. Lactated Ringers [Ringers, Lactated] 1,000 ml IV ASDIRECTED. Oxytocin/Lactated Ringers [Pitocin in LR 10 Units/1,000 ML] 10 unit in 1,000 ml IV .CONTINUOUS. 01/14/20 03:35. RAPID PLASMA REAGIN,RPR [CHEM] Routine. 01/14/20 05:55. Acetaminophen [TylenoL] 650 mg PO Q6H PRN. - Plan. Plan:: Plan labor and delivery Diagnosis: Stroke: No - Discharge Data Discharge Date: 01/15/20 Discharge Disposition: Home, Self-Care 01 Condition: Good - Referral to Home Health Primary Care Physician: Tal Tidwell MD - Discharge Diagnosis/Problem(s) (1) 39 weeks gestation of SNOMED Code(s): 31822237 ICD Code: Z3A.39 - 39 WEEKS GESTATION OF Status: Acute Current Visit: Yes (2) First degree laceration of perineum during delivery, SNOMED Code(s): 821961517 ICD Code: O70.0 - FIRST DEGREE PERINEAL LACERATION DURING DELIVERY Status: Acute Current Visit: Yes - Patient Summary/Data Complications: none Consults: none Hospital Course: uneventful - Patient Instructions Diet: Usual Diet as Tolerated Driving: Do Not Drive (x2 days) Showering/Bathing: May Shower Notify Provider of: Fever, Increased Pain, Swelling and Redness, Drainage, Nausea and/or Vomiting - Discharge Plan *PRESCRIPTION DRUG MONITORING PROGRAM REVIEWED*: Not Applicable *COPY OF PRESCRIPTION DRUG MONITORING REPORT IN PATIENT ERICA: Not Applicable Prescriptions/Med Rec: Labetalol [Normodyne] 100 mg PO BID #60 tablet Home Medications: Home Meds Ferrous Sulfate [Iron] 1 tab PO DAILY 01/14/20 [History] Pnv No.95/Ferrous Fum/Folic AC [ Vitamins Tablet] 1 tab PO DAILY 0 [History] Acetaminophen [Tylenol] 650 mg PO Q6H PRN tablet 01/15/20 [Rx] Ibuprofen [Motrin] 600 mg PO Q6H PRN tablet 01/15/20 [Rx] Labetalol [Normodyne] 100 mg PO BID #60 tablet 01/15/20 [Rx] witch Shanna [Tucks] 1 pad TOP ASDIRECTED PRN pad 01/15/20 [Rx] Referrals: Satish Mojica MD [Physician] - (2 weeks) - Discharge Summary/Plan Comment DC Time >30 min.: No - Patient Data Vitals - Most Recent: Last Vital Signs Temp 98.8 F 01/15/20 00:26 Pulse 100 01/15/20 00:26 Resp 14 01/15/20 00:26 BP 124/78 01/15/20 00:26 Pulse Ox 98 01/15/20 00:26 Weight - Most Recent: 201 lb 11.2 oz I&O - Last 24 hours: Intake & Output 01/14/20 01/14/20 01/15/20 14:59 22:59 06:59 Intake Total 1500 Balance 1500 Med Orders - Current: Current Medications Acetaminophen (Tylenol) 650 mg PO Q4H PRN PRN Reason: Pain Benzocaine/Menthol (Dermoplast Pain Relief [place]) 0 gm TOP ASDIRECTED PRN PRN Reason: Pain Last Admin: 01/14/20 11:23 Dose: 1 can Documented by: Ibuprofen (Motrin) 600 mg PO Q6H PRN PRN Reason: Pain Labetalol HCl (Normodyne) 100 mg PO BID PRECIOUS Witch Shanna (Tucks) 1 pad TOP ASDIRECTED PRN PRN Reason: Pain Last Admin: 01/14/20 11:23 Dose: 1 jar Documented by: Discontinued Medications Acetaminophen (Tylenol) 650 mg PO Q6H PRN PRN Reason: Fever Last Admin: 01/14/20 05:52 Dose: 650 mg Documented by: Diphenhydramine HCl (Benadryl) 25 mg IVPUSH Q6H PRN PRN Reason: pruritis Ephedrine Sulfate (Ephedrine Sulfate) 5 mg IVPUSH ASDIRECTED PRN PRN Reason: Hypotension Fentanyl (Sublimaze) 100 mcg EPIDUR Q3H PRN PRN Reason: Pain Last Admin: 01/14/20 04:28 Dose: 100 mcg Documented by: Fentanyl/Bupivacaine HCl (Fentanyl/Bupivacaine/Ns 2 Mcg-0.125% 100 Ml) 100 ml EPIDUR ASDIRECTED PRN PRN Reason: Pain Last Admin: 01/14/20 04:28 Dose: 100 ml Documented by: Lactated Ringer's (Ringers, Lactated) 1,000 mls @ 100 mls/hr IV ASDIRECTED PRECIOUS Last Admin: 01/14/20 06:00 Dose: 900 mls/hr Documented by: Oxytocin/Lactated Ringer's (Pitocin In Lr 10 Units/1,000 Ml) 10 unit in 1,000 mls @ 500 mls/hr IV .CONTINUOUS PRECIOUS Last Admin: 01/14/20 07:50 Dose: 500 mls/hr Documented by: Labetalol HCl (Normodyne) 100 mg PO ONETIME ONE Stop: 01/14/20 17:23 Last Admin: 01/14/20 17:28 Dose: 100 mg Documented by: Nalbuphine HCl (Nubain) 10 mg IVPUSH Q2H PRN PRN Reason: Pain Sodium Chloride (Saline Flush) 10 ml FLUSH ASDIRECTED PRN PRN Reason: Keep Vein Open
[2020-01-15] MEDS ORDERED: Labetalol 100 MG Tab PO SCH (09:00)
== END 2020-01-15 13:20 | disposition home or self-care (01) | DRG 560 ==
LOC: JD.OBCHECK 02:35 → JD.OB 04:13 → OBSVTOIN 08:21 → JD.OB 08:21
PROVIDERS: ADMIT Obstetrics & Gynecology; ATTEND Obstetrics & Gynecology
PROC: 10E0XZZ Delivery of Products of Conception, External Approach (ICD-10-PCS; principal; 2020-01-14)
PROC: 0HQ9XZZ Repair Perineum Skin, External Approach (ICD-10-PCS; 2020-01-14)
PROC: 3E0R3BZ Introduction of Anesthetic Agent into Spinal Canal, Percutaneous Approach (ICD-10-PCS; 2020-01-14)
PROC: 00HU33Z Insertion of Infusion Device into Spinal Canal, Percutaneous Approach (ICD-10-PCS; 2020-01-14)
DX: O99.02 Anemia complicating childbirth (principal); D64.9 Anemia, unspecified; Z3A.39 39 weeks gestation of pregnancy; Z37.0 Single live birth; O70.0 First degree perineal laceration during delivery; Z20.828 Contact with and (suspected) exposure to other viral communicable diseases
CPT/HCPCS: 36415; 51701; 59025; 59409; 82565; 82570; 83615; 84112; 84156; 84450; 84460; 84520; 84550; 85025; 86592; A9270-GY; J2590; J3010; J3490; J7120; U0002

== ENCOUNTER 2021-11-02 04:02 | Inpatient (IN) | payer BC ==
[2021-11-02] MEDS ORDERED: Calcium Carbonate 500 MG Tab.Chew PO PRN (04:27)
[2021-11-02] MEDS ORDERED: Nalbuphine HCl 10 MG/ 1ML Amp IVPUSH PRN (04:27)
[2021-11-02] MEDS ORDERED: Sodium Chloride 0.9% 10 ML Syringe FLUSH PRN (04:27)
[2021-11-02] MEDS ORDERED: Ondansetron 4 MG/2 ML SDV IVPUSH PRN (04:27)
[2021-11-02] MEDS ORDERED: Oxytocin/Lactated Ringers 10 UNIT/1,000 ML BAG IV SCH ×2 (04:30)
[2021-11-02] MEDS: Lactated Ringers 1,000 ML IV SCH ×3 (04:36→06:15)
[2021-11-02] MEDS ORDERED: Bupivacaine/fentaNYL/NS 100 ML Bag EPIDUR PRN (04:52)
[2021-11-02] MEDS ORDERED: fentaNYL 100 MCG/2 ML SDV EPIDUR PRN (04:52)
[2021-11-02] MEDS ORDERED: ePHEDrine 50 MG/ML SDV IVPUSH PRN (04:52)
[2021-11-02] MEDS ORDERED: diphenhydrAMINE 50 MG/ML SDV IVPUSH PRN (04:52)
[2021-11-02] MEDS ORDERED: Bupivacaine 0.25% 10 ML SDV ONE (08:00)
[2021-11-02] MEDS ORDERED: Benzocaine/Menthol 20%-0.5% Spray 78 GM Cannister TOP PRN (08:34)
[2021-11-02] MEDS ORDERED: Witch Hazel Medicated Pads 40/Jar TOP PRN (08:34)
[2021-11-02] MEDS ORDERED: Acetaminophen 325 MG Tab PO PRN (08:34)
[2021-11-02] MEDS ORDERED: Ibuprofen 600 MG Tab PO PRN (08:34)
[2021-11-02] MEDS ORDERED: Sodium Chloride 0.9% 10 ML Syringe FLUSH SCH (09:00)
== END 2021-11-03 10:50 | disposition home or self-care (01) | DRG 560 ==
LOC: JD.OBCHECK 04:02 → JD.OB 04:06 → JD.OBCHECK 04:25 → JD.OB 04:27 → OBSVTOIN 06:30 → JD.MS 06:31 → JD.OB 11:30
PROVIDERS: ADMIT Obstetrics & Gynecology; ATTEND Obstetrics & Gynecology
PROC: 10E0XZZ Delivery of Products of Conception, External Approach (ICD-10-PCS; principal; 2021-11-02)
PROC: 10907ZC Drainage of Amniotic Fluid, Therapeutic from Products of Conception, Via Natural or Artificial Opening (ICD-10-PCS; 2021-11-02)
PROC: 3E0R3BZ Introduction of Anesthetic Agent into Spinal Canal, Percutaneous Approach (ICD-10-PCS; 2021-11-02)
PROC: 00HU33Z Insertion of Infusion Device into Spinal Canal, Percutaneous Approach (ICD-10-PCS; 2021-11-02)
DX: O99.62 Diseases of the digestive system complicating childbirth (principal); Z37.0 Single live birth; K21.9 Gastro-esophageal reflux disease without esophagitis; O99.02 Anemia complicating childbirth; D64.9 Anemia, unspecified; Z3A.39 39 weeks gestation of pregnancy
CPT/HCPCS: 36415; 51701; 59025; 59409; 85025; 86592; 86850; 86900; 86901; A9270-GY; J2590; J3010; J3490; J7120

== ENCOUNTER 2024-01-23 01:13 | Inpatient (IN) | payer BC ==
[2024-01-23] MEDS ORDERED: Ondansetron 4 MG/2 ML SDV IVPUSH PRN (01:30)
[2024-01-23] MEDS ORDERED: Nalbuphine 10 MG/1 ML Vial IVPUSH PRN (01:30)
[2024-01-23] MEDS ORDERED: Sodium Chloride 0.9% 10 ML Syringe FLUSH PRN (01:30)
[2024-01-23] MEDS ORDERED: Lidocaine 1% 50 ML MDV INJECT PRN (01:30)
[2024-01-23 01:38] LABS: BASOPHILS PERCENT AUTO 0.2 % (0.0-1.0); EOSINOPHILS ABSOLUTE AUTO 0.1 K/mm3 (0.0-0.4); EOSINOPHILS PERCENT AUTO 0.7 % (0.0-6.0); HEMOGLOBIN 12.2 gm/dl (12.0-16.0); IMMATURE GRAN ABSOLUTE AUTO 0.04 K/mm3 (0.00-0.05); IMMATURE GRAN PERCENT AUTO 0.5 % (0.0-0.4); LYMPHOCYTES PERCENT AUTO 35.1 % (24.0-44.0); MEAN CORPUSCULAR HEMOGLOBIN 29.8 pg (28.0-32.0); MEAN CORPUSCULAR VOLUME 90.2 fl (83.0-99.0); MONOCYTES ABSOLUTE AUTO 0.7 K/mm3 (0.0-0.8); MONOCYTES PERCENT AUTO 8.7 % (0.0-8.0); NEUTROPHILS ABSOLUTE AUTO 4.6 K/mm3 (1.8-7.7); NEUTROPHILS PERCENT AUTO 54.8 % (41.0-71.0); PLATELET COUNT,PLT 177 K/mm3 (150-400)
[2024-01-23] MEDS ORDERED: fentaNYL 100 MCG/2 ML SDV EPIDUR PRN (01:41)
[2024-01-23] MEDS ORDERED: diphenhydrAMINE 50 MG/ML SDV IVPUSH PRN (01:41)
[2024-01-23] MEDS ORDERED: ePHEDrine 50 MG/ML SDV IVPUSH PRN (01:41)
[2024-01-23] MEDS ORDERED: Bupivacaine/fentaNYL/NS 100 ML Bag EPIDUR PRN (01:41)
[2024-01-23] MEDS: Oxytocin/0.9 % Sodium Chloride 30 UNIT/500 ML BAG IV SCH ×2 (02:10→03:21)
[2024-01-23] MEDS ORDERED: Witch Hazel Medicated Pads 40/Jar TOP PRN (03:06)
[2024-01-23] MEDS ORDERED: Benzocaine/Menthol 20%-0.5% Spray 78 GM Cannister TOP PRN (03:06)
[2024-01-23] MEDS ORDERED: Acetaminophen 325 MG Tab PO PRN (03:06)
[2024-01-23] MEDS: Lactated Ringers 1,000 ML IV SCH (03:21)
[2024-01-23] MEDS: Misoprostol 200 MCG Tab PO SCH (03:22)
[2024-01-23] MEDS: Ibuprofen 600 MG Tab PO SCH (05:00)
== END 2024-01-24 11:40 | disposition home or self-care (01) | DRG 560 ==
LOC: JD.OBCHECK 01:13 → JD.OB 01:17 → JD.OBCHECK 01:30 → OBSVTOIN 02:06 → JD.OB 04:57
PROVIDERS: ADMIT Obstetrics & Gynecology; ATTEND Obstetrics & Gynecology
PROC: 10E0XZZ Delivery of Products of Conception, External Approach (ICD-10-PCS; principal; 2024-01-23)
PROC: 3E0R3BZ Introduction of Anesthetic Agent into Spinal Canal, Percutaneous Approach (ICD-10-PCS; 2024-01-23)
PROC: 00HU33Z Insertion of Infusion Device into Spinal Canal, Percutaneous Approach (ICD-10-PCS; 2024-01-23)
DX: O80 Encounter for full-term uncomplicated delivery (principal); Z37.0 Single live birth; Z3A.39 39 weeks gestation of pregnancy; Z98.890 Other specified postprocedural states
CPT/HCPCS: 36415; 59025; 59409; 85025; 86592; 86850; 86900; 86901; A9270-GY; J7120; J7999